=== PATIENT | male | born 1980 ===

== ENCOUNTER 2018-03-06 19:19 | Outpatient (CLI) | payer OTHER ==
[~2018-03-06 19:19] MED LIST: TUSSEX COUGH S118 ML PO; ULTRAM50 MG PO
== END 2018-03-06 20:07 | disposition home or self-care (01) ==
LOC: LAB 19:19
DX: J10.81 Influenza due to other identified influenza virus with encephalopathy (principal); J11.1 Influenza due to unidentified influenza virus with other respiratory manifestations

== ENCOUNTER 2019-04-02 16:00 | Outpatient (CLI) | payer OTHER | END 2019-04-02 16:10 | disposition home or self-care (01) | LOC: LAB 16:00 | DX: J11.1 Influenza due to unidentified influenza virus with other respiratory manifestations (principal) ==

== ENCOUNTER 2024-05-08 12:02 | Outpatient (CLI) | payer OTHER | END 2024-05-08 12:17 | disposition home or self-care (01) | LOC: SONOGRAMA 12:02 | PROVIDERS: ATTEND Family Medicine | DX: S46.101A Unspecified injury of muscle, fascia and tendon of long head of biceps, right arm, initial encounter (principal); X58.XXXA Exposure to other specified factors, initial encounter; Y93.9 Activity, unspecified; Y92.9 Unspecified place or not applicable; Y99.9 Unspecified external cause status ==

== ENCOUNTER 2024-05-08 13:19 | Outpatient (CLI) | payer OTHER | END 2024-05-08 13:30 | disposition home or self-care (01) | LOC: TOM 13:19 | PROVIDERS: ATTEND Family Medicine | DX: S46.101A Unspecified injury of muscle, fascia and tendon of long head of biceps, right arm, initial encounter (principal) ==